=== PATIENT | female | born 1955 | race Caucasian/White ===

== ENCOUNTER 2018-10-20 20:13 | Inpatient (IN) | payer OTHER, SELFPAY ==
[2018-10-20] VITALS (13 sets, daily range): BP systolic 155–177; BP diastolic 80–88; PULSE 86–96; RESP 18; TEMP 36.8–37.6; O2SAT 98–100
--- NOTE | 2018-10-20 20:47 | ED.GENADUL_ITS ---
Discharge Plan Disposition Patient Disposition: [facility] INPATIENT Condition: Stable Discharge Details Chief Complaint: Abd Prob Clinical Impression: SBO (small bowel obstruction) Primary Care Provider: None,None ED Provider: Adrian Enriquez Home Meds and New Rx's Prescriptions: No Action raloxifene 60 mg Tablet 60 mg PO DAILY RF: 0 zolpidem [Ambien CR] 12.5 mg Tablet,Ext Release Multiphase 12.5 mg PO QHS PRNRF: 0 Medical Decision Making 63 yo female with hx of hysterectomy who comes in with chief complaint of abdominal pain and n/v since 2pm today. Denies fevers, chills, chest pain, sob. Dnies having pain eralier in the day and last BM yesterday. She appears in pain on exam with mildly distended abdomen and pain throughhout in every quadrant without guarding. Concern for sbo among other pathology, will obtain lab work and imaging to further evaluate. pt remains stable, labs unremarkable. Ct shows at least partial bowel o bstruction. Spoke with Dr. Dalton who accepts admission and requests NG tube which patient agrees with Differential Diagnosis sbo, colitis, perforation Imaging Data Radiologic Study: Attestation: I personally reviewed and interpreted this imaging study as follows: Imaging: CT Scan Radiologist's impression: IMPRESSION: Abnormally dilated loops of small bowel in the pelvis, at least partial small bowel obstruction, closed loop obstruction cannot be ruled out. Status post hysterectomy. No evidence for bowel perforation at this time. Lab Data Lab results reviewed: Yes I reviewed the patient's lab results. HPI General Mode of arrival: ambulatory . Date/Time Provider Initiated Documentation: 10/20/18 20:14 . Limitations to Documentation: no limitations . Information obtained by: patient . History of Present Illness 63 year old F presents to the emergency department with the chief complaint of abdominal pain, described as moderate, Quality is described as aching, and is localized to the abdomen. Patient reports no radiation. Patient started experiencing this hour(s) (6) and it has been constant. No relieving factors improve symptom(s), No exacerbating factors reported . Patient notes nausea/vomiting. Patient did receive the following treatments prior to arrival, none Related Data Home Medications Medication Instructions Recorded Confirmed raloxifene 60 mg PO DAILY 10/20/18 10/20/18 zolpidem [Ambien CR] 12.5 mg PO QHS PRN 10/20/18 10/20/18 Allergies Allergy/AdvReac Type Severity Reaction Status Date / Time No Known Allergies Allergy Unverified 10/20/18 20:23 General Stated Complaint: Abd Prob OLGA: 3 Review of Systems Review of Systems All systems reviewed & are unremarkable except as noted in HPI and below Constitutional Denies chills, Denies fever(s) and Denies weakness Cardiovascular Denies chest pain and Denies dyspnea Respiratory Denies cough and Denies dyspnea Genitourinary Denies dysuria Integumentary/Breasts Denies rash Neurologic Denies weakness PFSH Social History Smoking/Tobacco Use Status: Never Alcohol Intake: current Alcohol Intake frequency: a few times a month Drug use: Never Substance use type: does not use Do you feel safe at home: Yes Do you feel safe in your relationship?: Yes Exam Const General: no acute distress Orientation: alert HENMT Head: normal to inspection Ears: external ears normal General nose exam: external nose normal Mouth: moist mucous membranes Eyes General: appearance normal, both eyes and all related structures Neck Neck: normal visual inspection Resp Effort & Inspection: normal respiratory effort and able to speak in complete sentences Cardio Rate: regular rate GI Palpation: not firm Skin General skin exam: no rashes or lesions noted Neuro General: alert and oriented x3 Extrem General: normal to inspection Psych Mental Status: mental status grossly normal Course Vital Signs Temperature 36.8 C 10/20/18 20:20 Pulse 96 H 10/20/18 20:20 Blood Pressure 160/80 H 10/20/18 20:20 Pulse Oximetry 100 10/20/18 20:20 Temperature 36.8 C 10/20/18 20:20 Temperature Source Tympanic 10/20/18 20:20 Pulse 96 H 10/20/18 20:20 Respiratory Effort Non-Labored 10/20/18 20:25 Blood Pressure 160/80 H 10/20/18 20:20 Pulse Oximetry 100 10/20/18 20:20 Pain Level 3 10/20/18 20:20 Comment 10/20/18 20:20
[2018-10-20] MEDS: Normal Saline 1,000 ML 1000 ML IV (20:54)
[2018-10-20] MEDS: Ketorolac 15 MG/ML VIAL IVP (20:54)
[2018-10-20 20:58] LABS: Abs Immature Grans 0.02 k/cumm (0.0-0.09); Absolute Basophil Count 0.01 k/cumm (0.0-0.2); Absolute Lymphocyte Count 0.96 k/cumm (1.2-3.4); Absolute Monocyte Count 0.27 k/cumm (0.11-0.7); Basophils % 0.1; HCT 42.6 % (36.0-46.0); HGB 14.7 g/dL (12.0-15.5); Immature Grans % 0.2; Lymphocytes % 8.2; Mean Corp. HGB Concentration 34.5 g/dL (32.0-36.0); Mean Corpuscular Hemoglobin 31.7 pg (27.0-33.0); Mean Platelet Volume 10.2 fL (8.0-11.0); Monocytes % 2.3; Neutrophils % 89.2; Platelet Count 208 x1000/uL (130-400); RBC 4.63 m/cumm (4.00-5.20); RBC Distribution Width 12.1 % (11.7-14.6); White Blood Cell Count 11.73 k/cumm (4.4-10.8)
[2018-10-20 20:59] LABS: Absolute Neutrophil Count 10.46 k/cumm (1.2-6.7)
[2018-10-20] MEDS: Omnipaque 350 MG/ML 100 ML BTL IJ (21:02)
--- NOTE | 2018-10-20 21:08 | DI.CT_ITS ---
SYMPTOM/DIAGNOSIS: ABDOMINAL PAIN, VOMITING CT ABDOMEN AND PELVIS: There are no prior comparison exams. Images were performed from the lung bases through the ischial tuberosities after IV and without oral contrast. The heart size is normal. There is a small hiatal hernia. The lung bases are clear. The liver is mildly enlarged and shows mild fatty infiltration. No focal liver lesions or biliary dilatation is seen. The gallbladder is unremarkable. The spleen, pancreas, adrenals and kidneys appear normal. There is dilatation of loops of small bowel seen in the mid and lower abdomen. There are decompressed loops seen distally, There is a transition point which is near the midline at the level of the iliac crest. The stomach is not significantly distended. There is no free air or free fluid. No pneumatosis is seen. The patient is status post hysterectomy. The bladder is unremarkable. There has been prior anterior abdominal wall hernia repair. There is some thinning of the abdominal wall musculature but no evidence of a recurrent hernia. The aorta is normal in diameter. There are no significant bony abnormalities. IMPRESSION: Findings consistent with a small bowel obstruction. A transition point is seen in the mid abdomen.
[2018-10-20 21:12] LABS: ALT 28 U/L (14-59); AST 16 U/L (15-37); Albumin 4.2 g/dL (3.4-5.0); Alkaline Phosphatase 82 U/L (46-116); Anion Gap 15.9 mmol/L (3-11); BUN 13 mg/dL (7-18); Bilirubin, Total 0.5 mg/dL (0.2-1.0); CO2 24.1 mmol/L (21.0-32.0); CREATININE 0.96 mg/dL (0.55-1.02); Calcium 9.9 mg/dL (8.5-10.1); Chloride 102 mmol/L (98-107); Estimated GFR 58.51 (mL/min/1.73m2); Glucose 170 mg/dL (70-100); Lipase 136 U/L (73-393); Magnesium 1.7 mg/dL (1.8-2.4); Potassium 3.4 mmol/L (3.5-5.1); Sodium 142 mmol/L (136-145); Total Protein 7.6 g/dL (6.4-8.2)
--- NOTE | 2018-10-20 21:15 | DI.VRAD_ITS ---
EXAM: CT Abdomen and Pelvis With Contrast EXAM DATE/TIME: 10/20/2018 8:33 PM CLINICAL HISTORY: 63 years old, female; Abdominal pain; Generalized; Prior surgery; Surgery date: 6+ months; Surgery type: Oophorectomy/hysterectomy; Patient HX: HX breast cancer 1997; Additional info: Pain, nausea, vomiting, chills, shakes x6+/- hours TECHNIQUE: Imaging protocol: Computed tomography of the abdomen and pelvis with intravenous contrast. Radiation optimization: All CT scans at this facility use at least one of these dose optimization techniques: automated exposure control; mA and/or kV adjustment per patient size (includes targeted exams where dose is matched to clinical indication); or iterative reconstruction. Contrast material: [id number]; Contrast volume: 100 ml; Contrast route: IV RAC 18G; COMPARISON: No relevant prior studies available. FINDINGS: Liver: Enlarged liver, 18.5 cm in craniocaudal dimensions. Gallbladder and bile ducts: No calcified stones. No ductal dilation. Pancreas: Unremarkable. No ductal dilation. Spleen: Unremarkable. No splenomegaly. Adrenals: Unremarkable. No mass. Kidneys and ureters: Unremarkable. No hydronephrosis. Stomach and bowel: Dilated loops of small bowel. Transition point is not clearly identified. Likely at least partial mechanical small bowel obstruction. Small hiatal hernia containing proximal stomach. Appendix: No evidence of appendicitis. Intraperitoneal space: No free air. No significant fluid collection. Vasculature: No abdominal aortic aneurysm. Lymph nodes: No enlarged lymph nodes. Bladder: Unremarkable as visualized. Reproductive: Status post hysterectomy. Bones/joints: No acute fracture. No dislocation. Soft tissues: Postsurgical changes within right anterior abdominal wall, likely status post breast reconstruction.. IMPRESSION: Abnormally dilated loops of small bowel in the pelvis, at least partial small bowel obstruction, closed loop obstruction cannot be ruled out. Status post hysterectomy. No evidence for bowel perforation at this time. Dictated and Authenticated by: Carlos Marshall MD. Ordering:MEREDITH Campbell MD
[2018-10-20] MEDS: Ondansetron 4 MG/2 ML VIAL IVP (21:20)
[2018-10-20 21:21] LABS: PTT Activated 19.2 sec (21.0-31.4); Prothrombin Time 9.5 sec (9.3-11.0)
[2018-10-20 21:30] LABS: Bilirubin Negative (Negative); Blood Trace-intact (Negative); Clarity Clear (Clear); Glucose Negative (Negative); Ketones 40 mg/dL (Negative); Leukocyte Esterase Negative (Negative); Nitrite Negative (Negative); Urobilinogen 0.2 EU/dL (Up TO 0.2)
--- NOTE | 2018-10-20 21:36 | HPE_ITS ---
Date of service: 10/21/18 Time of Service: 21:36 Assessment and Plan (1) SBO (small bowel obstruction): Current visit: Yes Status: Acute appears to be resolving w/ gastric decompression/fluids/pain control. -pt is going to be in [place] for a prolonged stay and is concerned about developing recurrent SBO. This is her first SBO since adhesion lysis about 20 yrs ago. Will see how she progresses in the next few days. will have her f/u in clinic to d/w risk vs benefit of elective laparascope and lysis of adhesions. (2) Lower abdominal adhesions: Current visit: Yes Status: Acute History of Present Illness Narrative: 63 y/o female presented to ED w/ abdom pain, N/V, chills & sweats. She had a vaginal MERLINE when she was 27. She started having some abdom pain in 39's and had a laprascope- and had adhesions and a lysis done. Has had no problems since that time. She denies any unusual activites. Bowels are nl regular. She doesn't think she was dehydrated. No bad food. no injury or trauma. No recent illness or travel. No one else at home is ill. She is planning a 10m stay in [place] starting in November. She has not had any abdominal problems/pain/SBO since the laprascopy. today: Pt is doing well. no headaches. No CP or SOB. no productive cough. no dysuria. no leg pain or swelling. + flatus. no thrush CT: Stomach and bowel: Dilated loops of small bowel. Transition point is not clearly identified. Likely at least partial mechanical small bowel obstruction. Small hiatal hernia containing proximal stomach. Appendix: No evidence of appendicitis. Intraperitoneal space: No free air. No significant fluid collection. Vasculature: No abdominal aortic aneurysm. Lymph nodes: No enlarged lymph nodes. Bladder: Unremarkable as visualized. Reproductive: Status post hysterectomy. Bones/joints: No acute fracture. No dislocation. Soft tissues: Postsurgical changes within right anterior abdominal wall, likely status post breast reconstruction.. IMPRESSION: Abnormally dilated loops of small bowel in the pelvis, at least partial small bowel obstruction, closed loop obstruction cannot be ruled out. Status post hysterectomy. No evidence for bowel perforation at this time. Dictated and Authenticated by: Carlos Marshall MD. Review of Systems Review of Systems All systems reviewed & are unremarkable except as noted in HPI and below Constitutional Reports as per HPI, Reports system reviewed and no additional complaints, except as docu, Denies anorexia, Denies chills, Denies difficulty sleeping, Denies fatigue, Denies headache(s), Denies lethargy, Denies malaise, Denies poor appetite, Denies weakness, Denies weight gain and Denies weight loss Eyes Reports as per HPI, Reports system reviewed and no additional complaints, except as docu and Denies change in vision ENT Reports system reviewed and no additional complaints, except as docu, Reports as per HPI, Denies change in voice, Denies dental pain, Denies dysphagia, Denies dizziness, Denies facial pain, Denies headache(s) and Denies odynophagia Cardiovascular Reports as per HPI, Reports system reviewed and no additional complaints, except as docu, Denies chest pain, Denies chest pain with activity, Denies syncope, Denies leg edema and Denies dyspnea Respiratory Reports as per HPI, Reports system reviewed and no additional complaints, except as docu, Denies chest congestion, Denies cough, Denies pain with cough and Denies dyspnea Gastrointestinal Reports as per HPI, Reports system reviewed and no additional complaints, except as docu, Denies abdominal pain, Denies bloating, Denies change in bowel habits, Denies change in stool character, Denies constipation, Denies cramping, Denies dysphagia, Denies early satiety, Denies heartburn, Denies diarrhea, Denies nausea, Denies odynophagia and Denies vomiting Comments: yest pt had n/v, abdom pain, chills & sweats. nl bowels are very regular. no wt lose. no changes in bowels or blood in stools. also very distended and painful yest. this has resolved. She is passing gas this am. no pain. Musculoskeletal Reports system reviewed and no additional complaints, except as docu, Reports as per HPI, Denies abnormal gait, Denies arthralgias and Denies muscle weakness Integumentary/Breasts Reports system reviewed and no additional complaints, except as docu, Reports as per HPI, Denies changing lesions, Denies new lesions and Denies jaundice Neurologic Reports system reviewed and no additional complaints, except as docu, Reports as per HPI, Denies abnormal speech, Denies abnormal gait, Denies dizziness, Denies syncope, Denies headache(s), Denies memory loss and Denies weakness Psychiatric Reports system reviewed and no additional complaints, except as docu, Reports as per HPI, Denies change in appetite and Denies memory loss Endocrine Denies fatigue, Denies polydipsia and Denies polyuria Hematologic/Lymphatic Reports system reviewed and no additional complaints, except as docu, Denies easy bleeding and Denies easy bruising Allergic/Immunologic Denies system reviewed and no additional complaints, except as docu, Reports as per HPI and Denies urticaria PFSH Medical History (Updated 10/21/18 @ 11:48 by Simona Dalton DO) Breast cancer (Chronic) Lower abdominal adhesions (Acute) SBO (small bowel obstruction) (Acute) Surgical History (Updated 10/21/18 @ 11:48 by Simona Dalton DO) History of salpingoophorectomy (Acute) Hx of mastectomy (Chronic) S/P MERLINE-BSO (Acute) S/P TRAM (transverse rectus abdominis muscle) flap breast reconstruction (Acute) Social History Smoking/Tobacco Use Status: Never Alcohol Intake: current Alcohol Intake frequency: a few times a month Drug use: Never Substance use type: does not use Do you feel safe at home: Yes Do you feel safe in your relationship?: Yes Female Reproductive History Menstrual Menopause type: surgical Meds Home Medications Medication Instructions Recorded Confirmed Type raloxifene 60 mg PO DAILY 10/20/18 10/20/18 History zolpidem [Ambien CR] 12.5 mg PO QHS PRN 10/20/18 10/20/18 History Allergies Allergy/AdvReac Type Severity Reaction Status Date / Time No Known Allergies Allergy Unverified 10/20/18 20:23 Exam Const General: cooperative, healthy appearing, comfortable, no acute distress, well developed and well groomed Nutritional Appearance: average body habitus and well nourished Orientation: alert, awake and oriented x3 HENMT Head: normal to inspection, normocephalic and atraumatic Ears: hearing grossly normal bilaterally and external ears normal General nose exam: external nose normal Face and sinus: normal facial exam and sinuses nontender Mouth: oral mucosae normal, lip normal, tongue normal and moist mucous membranes Teeth and gingiva: dentition normal Eyes General: appearance normal, both eyes and all related structures Conjunctivae: conjunctivae normal Sclera: sclerae normal Pupils: PERRL Neck Neck: normal visual inspection and full ROM Chest Chest: normal inspection of the chest Resp Effort & Inspection: normal respiratory effort, able to speak in complete sentences, no cough, no nasal flaring, not tachypneic and no use of accessory muscles Auscultation: clear to auscultation bilaterally, no rales, no rhonchi and no wheezes Cardio Jugular venous pressure: no JVD Rate: regular rate Rhythm: regular rhythm GI Inspection: normal to inspection, no edema and non-distended Palpation: soft, no masses, nontender and No ascites Auscultation: normal bowel sounds Other: soft and no pain today. good BS. post sx changes noted Skin General skin exam: no rashes or lesions noted Trauma: no lacerations or abrasions Other: tattoo over sx scar on lower abdom Neuro General: alert, oriented x3, oriented, gait normal, moves all extremities, no focal motor deficits and CN's II-XI intact bilaterally Cognition: normal cognition Speech: speech normal Gait: normal gait Motor: muscle tone normal throughout Extrem General: normal to inspection, full ROM and no clubbing, cyanosis or edema Psych Appearance: grossly normal and well kempt Mental Status: mental status grossly normal Speech and Movement: speech and movement normal Affect: normal affect Results Labs : 10/21/18 07:11 10/21/18 07:11 Laboratory Results - last 24 hr 10/20/18 10/20/18 10/20/18 20:42 20:42 20:42 WBC 11.73 H RBC 4.63 Hgb 14.7 Hct 42.6 MCV 92.0 MCH 31.7 MCHC 34.5 RDW 12.1 Plt Count 208 MPV 10.2 Immature Gran % 0.2 Neutrophils % 89.2 Lymphocytes % 8.2 Monocytes % 2.3 Eosinophils % 0.0 Basophils % 0.1 Absolute Neutrophils 10.46 H Absolute Lymphocytes 0.96 L Absolute Monocytes 0.27 Absolute Eosinophils 0.00 Absolute Basophils 0.01 PT 9.5 INR 1.0 APTT 19.2 L Sodium 142 Potassium 3.4 L Chloride 102 Carbon Dioxide 24.1 Anion Gap 15.9 H BUN 13 Creatinine 0.96 Estimated GFR/1.73 m2 58.51 Glucose 170 H Calcium 9.9 Magnesium 1.7 L Total Bilirubin 0.5 AST 16 ALT 28 Alkaline Phosphatase 82 Total Protein 7.6 Albumin 4.2 Lipase 136 Urine Color Urine Clarity Urine pH Ur Specific Melrose Urine Protein Urine Ketones Urine Blood Urine Nitrite Urine Bilirubin Urine Urobilinogen Ur Leukocyte Esterase Urine Glucose 10/20/18 21:20 WBC RBC Hgb Hct MCV MCH MCHC RDW Plt Count MPV Immature Gran % Neutrophils % Lymphocytes % Monocytes % Eosinophils % Basophils % Absolute Neutrophils Absolute Lymphocytes Absolute Monocytes Absolute Eosinophils Absolute Basophils PT INR APTT Sodium Potassium Chloride Carbon Dioxide Anion Gap BUN Creatinine Estimated GFR/1.73 m2 Glucose Calcium Magnesium Total Bilirubin AST ALT Alkaline Phosphatase Total Protein Albumin Lipase Urine Color Yellow Urine Clarity Clear Urine pH 7.0 Ur Specific Melrose 1.010 Urine Protein Negative Urine Ketones 40 H Urine Blood Trace-intact H Urine Nitrite Negative Urine Bilirubin Negative Urine Urobilinogen 0.2 Ur Leukocyte Esterase Negative Urine Glucose Negative Last Vital Signs Temp 36.8 C 10/20/18 20:20 Pulse 96 H 10/20/18 20:20 BP 160/80 H 10/20/18 20:20 Pulse Ox 100 10/20/18 20:20
[2018-10-20] MEDS: diazePAM 10 MG/2 ML SYR 5 MG IVP (21:41)
[2018-10-20 21:46] LABS: Bacteria Negative HPF (Negative); C & S Indicated? No; Casts Negative LPF (Negative); Crystals Negative HPF (Negative); Epithelial Cells Negative HPF (Negative); Mucus Negative (Negative); WBC Negative HPF (0-5)
[2018-10-21] MEDS: FAMOTIDINE 20 MG/50 ML BAG 200 MG IVPB ×3 (01:03→20:11)
[2018-10-21] MEDS: Lactated Ringers 1,000 ML 150 ML IV ×3 (01:03→19:22)
[2018-10-21] MEDS: MAGNESIUM SULFATE 1 GM/100 ML BAG IVPB (01:04)
[2018-10-21 04:13] VITALS: TEMP 37.2
[2018-10-21 07:48] LABS: Platelet Count 194 x1000/uL (130-400)
[2018-10-21 07:56] LABS: Anion Gap 8.9 mmol/L (3-11); BUN 10 mg/dL (7-18); CO2 27.1 mmol/L (21.0-32.0); CREATININE 0.67 mg/dL (0.55-1.02); Calcium 8.6 mg/dL (8.5-10.1); Chloride 107 mmol/L (98-107); Glucose 101 mg/dL (70-100); Magnesium 2.2 mg/dL (1.8-2.4); Potassium 3.4 mmol/L (3.5-5.1); Sodium 143 mmol/L (136-145)
--- NOTE | 2018-10-21 08:00 | DI.RAD_ITS ---
SYMPTOMS/DIAGNOSIS: SMALL BOWEL OBSTRUCTION ON CT OF 10/20 FLAT AND UPRIGHT VIEWS OF THE ABDOMEN: A nasogastric tube is seen projecting in the stomach. No free air is identified. There are surgical clips along the left lower chest. No bowel dilatation or air-fluid levels are seen. IMPRESSION: No evidence of significant bowel dilatation. Satisfactory placement of nasogastric tube.
--- NOTE | 2018-10-21 09:14 | DI.VRAD_ITS ---
EXAM: XR Abdomen, 2 Views EXAM DATE/TIME: 10/21/2018 12:01 AM CLINICAL HISTORY: 63 years old, female; Other: Sbo on CT 10/20 TECHNIQUE: Imaging protocol: Frontal view of the abdomen/pelvis with upright view of the abdomen. COMPARISON: CT ABDOMEN PELVIS W 10/20/2018 9:03 PM FINDINGS: Tubes, catheters and devices: An enteric feeding tube is present, with its tip located in the stomach in good position.. Gastrointestinal tract: Multiple air-filled loops of bowel. No nora dilatation. Intraperitoneal space: Surgical clips in the pelvis Bones/joints: Unremarkable for age. IMPRESSION: 1. An enteric feeding tube is present, with its tip located in the stomach in good position.. 2. Multiple air-filled loops of bowel. No nora dilatation. Dictated and Authenticated by: Corbin Acuña MD. Ordering:MAGALY Jarvis MD
[2018-10-21] MEDS: Enoxaparin 40 MG/0.4 ML SYR SC (09:55)
[2018-10-21 11:37] VITALS: BP 129/79; PULSE 83; RESP 17; TEMP 36.9; O2SAT 97
[2018-10-21] MEDS: POTASSIUM CHLORIDE 10 MEQ/100 ML BAG 100 MEQ IVPB ×2 (12:50→14:56)
[2018-10-21] MEDS: Magnesium Citrate 300 ML BTL PO (14:11)
[2018-10-21 15:55] VITALS: BP 127/82; PULSE 80; RESP 18; TEMP 37.4; O2SAT 96
[2018-10-21] MEDS: ACETAMINOPHEN 1,000 MG/100 ML BTL 400 MG IVPB (21:58)
[2018-10-21] MEDS: Zolpidem 6.25 MG TABCR 12.5 MG PO (21:58)
[2018-10-22] MEDS: Lactated Ringers 1,000 ML 150 ML IV ×2 (02:07→09:15)
[2018-10-22 03:45] VITALS: BP 125/73; PULSE 81; RESP 18; TEMP 37.2; O2SAT 97
[2018-10-22] MEDS: Ondansetron 4 MG/2 ML VIAL IVP ×2 (04:00→10:35)
[2018-10-22] MEDS: Normal Saline Flush 10 ML SYR IVP ×3 (04:00→18:00)
[2018-10-22 08:18] VITALS: BP 129/82; PULSE 80; RESP 20; TEMP 36.7; O2SAT 96
[2018-10-22] MEDS: FAMOTIDINE 20 MG/50 ML BAG 200 MG IVPB ×2 (08:40→19:45)
[2018-10-22] MEDS: Enoxaparin 40 MG/0.4 ML SYR SC (08:54)
--- NOTE | 2018-10-22 11:58 | PGE_ITS ---
Date of Service Date of service: 10/22/18 Time of Service: 12:00 Assessment and Plan (1) SBO (small bowel obstruction): Current visit: Yes Status: Acute resolved. pt had signif amount of fecal matter and did some Mg Citrate to alleviate this. No she is having voluminous diarrhea. Continue with supportive care for this. Don't want to do anti diarrheals as to cause rebound constipation and bring on the SBO again. -ADAT -supportive care -hopefully d/c home in am -f/u as outpt to d/w elective dg laprascopic lysis of adhesions. Do want to review CT w/ rads before making this decision. (2) Lower abdominal adhesions: Current visit: Yes Status: Acute Subjective Interval history since last seen: Pt is doing well. no headaches. No CP or SOB. no productive cough. no dysuria. no leg pain or swelling. She did the Mg Citrate last lopez, now she has profuse diarrhea. She has some nasuea and abdominal cramping- but this is prob from diarrhea. She is not on/nor has she been on abx. Has local irritation. Otherwise feels much better than when she came in. Would like to try solid foods Exam Const General: cooperative Orientation: alert, awake and oriented x3 HENMT Ears: hearing grossly normal bilaterally General nose exam: external nose normal Face and sinus: normal facial exam and face symmetric Mouth: oral mucosae normal and tongue normal Chest Other: s/p mastectomy and TRAM reconstruction Resp Effort & Inspection: normal respiratory effort and able to speak in complete sentences Auscultation: clear to auscultation bilaterally Cardio Rate: regular rate Rhythm: regular rhythm GI Inspection: non-distended Palpation: soft and no guarding Rectal Exam - female: tenderness and other (excoriation ) Other: good BS Skin General skin exam: no rashes or lesions noted Neuro General: alert, awake, oriented x3, oriented, gait normal and moves all extremities Cognition: normal cognition Speech: speech normal Objective Objective Clinical Data: Vital Signs Temperature 36.7 C 10/22/18 08:18 Temperature Source Tympanic 10/22/18 08:18 Pulse 80 10/22/18 08:18 Pulse Rhythm Regular 10/22/18 09:02 Respiratory Rate 20 10/22/18 08:18 Respiratory Effort Non-Labored 10/22/18 09:02 Respiratory Depth Normal 10/22/18 09:02 Respiratory Pattern Normal 10/22/18 09:02 Blood Pressure 129/82 10/22/18 08:18 Blood Pressure Mean 99 10/20/18 22:46 Pulse Oximetry 96 10/22/18 08:18 Oxygen Delivery Method Room Air 10/22/18 08:18 Oxygen Flow Rate 0 10/22/18 08:18 Pain Level 0 10/22/18 08:18 Comment 10/20/18 20:20 Intake & Output 10/21/18 10/21/18 10/22/18 11:59 23:59 11:59 Intake Total 1105 / 2695 1590 / 2695 4030 / 4030 Output Total 400 / 400 Balance 705 / 2295 1590 / 2295 4030 / 4030 Intake: IV 1105 / 2455 1350 / 2455 3070 / 3070 Oral 240 / 240 960 / 960 Output: Gastric Drainage 100 / 100 Right Nare 100 / 100 Urine 300 / 300 Other: Urine Color Yellow Urine Appearance Clear Urine Odor None Comment voids independently in toilet Pt voiding ad missy in toilet; mixed with mulitiple liquid stools. Voiding Methods Toilet Toilet Toilet Laboratory Results WBC 11.73 k/cumm (4.4-10.8) H 10/20/18 20:42 RBC 4.63 m/cumm (4.00-5.20) 10/20/18 20:42 Hgb 14.7 g/dL (12.0-15.5) 10/20/18 20:42 Hct 42.6 % (36.0-46.0) 10/20/18 20:42 MCV 92.0 fL (80-95) 10/20/18 20:42 MCH 31.7 pg (27.0-33.0) 10/20/18 20:42 MCHC 34.5 g/dL (32.0-36.0) 10/20/18 20:42 RDW 12.1 % (11.7-14.6) 10/20/18 20:42 Plt Count 194 x1000/uL (130-400) 10/21/18 07:11 MPV 10.2 fL (8.0-11.0) 10/20/18 20:42 Immature Gran % 0.2 10/20/18 20:42 89.2 10/20/18 20:42 8.2 10/20/18 20:42 2.3 10/20/18 20:42 0.0 10/20/18 20:42 0.1 10/20/18 20:42 Absolute Neutrophils 10.46 k/cumm (1.2-6.7) H 10/20/18 20:42 Absolute Lymphocytes 0.96 k/cumm (1.2-3.4) L 10/20/18 20:42 Absolute Monocytes 0.27 k/cumm (0.11-0.7) 10/20/18 20:42 Absolute Eosinophils 0.00 k/cumm (0.0-0.7) 10/20/18 20:42 Absolute Basophils 0.01 k/cumm (0.0-0.2) 10/20/18 20:42 PT 9.5 sec (9.3-11.0) 10/20/18 20:42 INR 1.0 (0.9-1.1) 10/20/18 20:42 APTT 19.2 sec (21.0-31.4) L 10/20/18 20:42 Sodium 143 mmol/L (136-145) 10/21/18 07:11 Potassium 3.4 mmol/L (3.5-5.1) L 10/21/18 07:11 Chloride 107 mmol/L (98-107) 10/21/18 07:11 Carbon Dioxide 27.1 mmol/L (21.0-32.0) 10/21/18 07:11 8.9 mmol/L (3-11) 10/21/18 07:11 BUN 10 mg/dL (7-18) 10/21/18 07:11 0.67 mg/dL (0.55-1.02) 10/21/18 07:11 >= 60.00 (mL/min/1.73m2) 10/21/18 07:11 Glucose 101 mg/dL (70-100) H D 10/21/18 07:11 Calcium 8.6 mg/dL (8.5-10.1) 10/21/18 07:11 Magnesium 2.2 mg/dL (1.8-2.4) 10/21/18 07:11 0.5 mg/dL (0.2-1.0) 10/20/18 20:42 AST 16 U/L (15-37) 10/20/18 20:42 ALT 28 U/L (14-59) 10/20/18 20:42 82 U/L (46-116) 10/20/18 20:42 7.6 g/dL (6.4-8.2) 10/20/18 20:42 4.2 g/dL (3.4-5.0) 10/20/18 20:42 136 U/L (73-393) 10/20/18 20:42 Yellow (Yellow) 10/20/18 21:20 Clear (Clear) 10/20/18 21:20 7.0 (5-8) 10/20/18 21:20 Ur Specific [place] 1.010 (1.005-1.025) 10/20/18 21:20 Negative mg/dL (Negative) 10/20/18 21:20 40 mg/dL (Negative) H 10/20/18 21:20 Trace-intact (Negative) H 10/20/18 21:20 Negative (Negative) 10/20/18 21:20 Negative (Negative) 10/20/18 21:20 0.2 EU/dL (Up TO 0.2) 10/20/18 21:20 Ur Leukocyte Esterase Negative (Negative) 10/20/18 21:20 3-5 (0-2) H 10/20/18 21:20 Negative HPF (0-5) 10/20/18 21:20 Ur Epithelial Cells Negative HPF (Negative) 10/20/18 21:20 Negative HPF (Negative) 10/20/18 21:20 Negative HPF (Negative) 10/20/18 21:20 Negative LPF (Negative) 10/20/18 21:20 Negative (Negative) 10/20/18 21:20 Ur Culture Indicated? No 10/20/18 21:20 Negative mg/dL (Negative) 10/20/18 21:20
[2018-10-22] MEDS: Hamamelis Leaf/Glycerin 100 EACH BOX PR (14:14)
[2018-10-22] MEDS: Cetirizine 10 MG TAB PO (14:50)
[2018-10-22 15:56] VITALS: BP 139/83; PULSE 72; RESP 18; TEMP 36.8; O2SAT 99
--- NOTE | 2018-10-22 18:26 | PDOC.CMIN ---
- If Service Date Differs Date of service: 10/22/18 Time of Service: 18:26 Care Management Initial Assess REASON FOR HOSPITALIZATION:: SBO PAST MEDICAL HISTORY/PAST SURGICAL HISTORY:: Breast cancer, bowel adhesions, small bowel obstruction. Surgical Hx: Salpingoophorectomy, mastectomy, total abdominal hyst, TRAM PREVIOUS FUNCTIONAL STATUS/SOCIAL/FAMILY SUPPORTS:: Rosalba lives in [place], [place] at [facility]. She is independent with ADL's and care including transportation. CURRENT FUNCTIONAL STATUS:: Rosalba reports she is improving she has been ambulating often in the halls. She anticipates she will be discharged on Tuesday. She is moving her bowels she reports the Mag Citrate made them a little loose and she is hoping they will slow down prior to leaving. She was able to tolerate some fruit today. ADVANCE DIRECTIVES:: none on file Has patient been provided with information about the portal?: Yes Did the patient sign up for the portal?: No CODE STATUS:: Full Code INSURANCE COVERAGE / FINANCIAL ISSUES:: [employer] CURRENT HOME/COMMUNITY SERVICES/EQUIPMENT:: None PRIMARY CARE PHYSICIAN:: Griffin Watson POTENTIAL DISCHARGE NEEDS:: Follow up with surgical provider as directed. PATIENT/FAMILY EDUCATION NEEDS:: Discharge education, limitations, follow-up plan of care. ANTICIPATED BARRIERS TO DISCHARGE:: No anticipated barriers. TRANSPORTATION:: Via private car with family or friends at time of discharge. PLAN:: Patient be discharged when medically ready per provider. She will follow-up with surgical provider as directed. No anticipated services at this time. CM to continue to provide support.
[2018-10-22] MEDS: Lactated Ringers 1,000 ML 100 ML IV (19:45)
[2018-10-22] MEDS: ACETAMINOPHEN 1,000 MG/100 ML BTL 400 MG IVPB (22:34)
[2018-10-22] MEDS: Zolpidem 6.25 MG TABCR 12.5 MG PO (22:35)
[2018-10-22 23:37] VITALS: BP 116/73; PULSE 78; RESP 18; TEMP 36.9; O2SAT 95
[2018-10-23] MEDS: Lactated Ringers 1,000 ML 100 ML IV (04:22)
[2018-10-23 07:23] VITALS: BP 148/94; PULSE 72; RESP 17; TEMP 36.4; O2SAT 96
[2018-10-23] MEDS: Cetirizine 10 MG TAB PO (08:23)
[2018-10-23] MEDS: Enoxaparin 40 MG/0.4 ML SYR SC (08:23)
[2018-10-23] MEDS: FAMOTIDINE 20 MG/50 ML BAG 200 MG IVPB (08:24)
[2018-10-23] MEDS: Ondansetron 4 MG/2 ML VIAL IVP (08:39)
[2018-10-23] MEDS: Normal Saline Flush 10 ML SYR IVP (08:39)
--- NOTE | 2018-10-23 10:22 | PDOC.CMDIS ---
LACE Index Scoring Tool - Questions: Length of Stay (in days): 3 Acuity (Admit via E.D.?): Yes Comorbidities: Any Tumor E.D. Visits: 1 - Answers: Total Score: 9 Risk of Readmission: Low Risk Care Management Discharge Reason for Hospitalization: SBO Discharge Plan: Rosalba will be discharged home when ready per MD. She will follow-up with surgical services and her plan of care prescribed. No additional services anticipated at this time. Patient/Family Education Needs: Review of discharge instructions, discuss Ask Me Three.
--- NOTE | 2018-10-23 12:37 | W.PM.DS.N ---
Date of service: 10/23/18 Time of Service: 12:37 DS: Diagnosis Discharge Diagnosis (1) SBO (small bowel obstruction): Status: Acute (2) Lower abdominal adhesions: Status: Acute Discharge Plan Disposition Patient Disposition: HOME Condition: Stable Discharge Details Chief Complaint: Abd Prob Clinical Impression: SBO (small bowel obstruction) Reason For Visit: PARTIAL SBO Admit Date/Time: 10/20/18 21:37 Admit Provider: Simona Dalton Attending Provider: Simona Dalton Primary Care Provider: Griffin Watson ED Provider: Adrian Enriquez Hospital Course Hospital Course: pt admitted w/ partially SBO that resolved w/ conservative management (NGT decompression, IV fluids, pain control). Pt had a vag hyst in her 20's. Did have laprascopic lysis of adhesions for abdom painin her 40's. Otherwise, this is her first SBO. She had a CE around age 49 that was nl for her. Home Meds and New Rx's Prescriptions: New cetirizine 10 mg Tablet 10 mg PO DAILY Qty: 30 RF: 13 Medi Pads Pads, Medicated 0 pad NH PRN PRNQty: 20 RF: 1 Continued raloxifene 60 mg Tablet 60 mg PO DAILY RF: 0 zolpidem [Ambien CR] 12.5 mg Tablet,Ext Release Multiphase 12.5 mg PO QHS PRNRF: 0 Discharge Instructions Instructions: Bowel Obstruction (DC) Additional Instructions: -OK to drive -yogurt daily -tucks pads OTC for local page irritation -Follow-up with Dr. Dalton or Tuesday of this week. Will have to call to schedule appt: [phone] -soft diet: No beef/pork raw vegetables x1 -week. Cooked vegetables are fine -no straining to move bowels if you do not move your bowels daily take a dose of OTC milk of magnesia -It is ok to shower. it is ok to: bathe, soaking, swimming or hot tubs You may find that your appetite is smaller. Eat 3-6 small meals throughout the day. It is important to drink lots of wate, 6-10 glasses a day. -avoid very strenuous activity for 1-2 days -We do want you up walking, at least 5-6 times per day. This is very important to prevent pneumonia and blood clots. You can climb stairs, take them slowly. -No lifting over 25 pounds for 1-2 days Stand Alone Forms: Nursing Discharge Form Referrals: Simona Dalton, [OSTEOPATHIC DOCTOR] - (Call the office Tuesday to schedule an appointment for either or Tuesday) Activity:: see above Equipment/Supplies:: No Equipment Needed Diet:: water 8-10 glasses per day Discharge Orders Discharge Orders: Discharge Order (Routine); Ordered 10/23/18 Ordered By: Simona Dalton Discharge Data Discharge Date/Time-TO BE ENTERED AT DEPARTURE: 10/23/18 13:58 Exam Narrative Exam Narrative: see progress note from 10/24 DS: Data Vitals/I&O Vitals and I&O: Vital Signs Temperature 36.4 C L 10/23/18 07:23 Temperature Source Tympanic 10/23/18 07:23 Pulse 72 10/23/18 07:23 Pulse Rhythm Regular 10/23/18 08:15 Respiratory Rate 17 10/23/18 07:23 Respiratory Effort Non-Labored 10/23/18 08:15 Respiratory Depth Normal 10/23/18 08:15 Respiratory Pattern Normal 10/23/18 08:15 Blood Pressure 148/94 H 10/23/18 07:23 Blood Pressure Mean 99 10/20/18 22:46 Pulse Oximetry 96 10/23/18 07:23 Oxygen Delivery Method Room Air 10/23/18 07:23 Oxygen Flow Rate 0 10/23/18 07:23 Pain Level 0 10/23/18 07:23 Comment 10/20/18 20:20 Intake & Output 10/22/18 10/23/18 10/23/18 23:59 11:59 23:59 Intake Total 2400 / 6630 1301.667 / 1301.667 Output Total 1800 / 1800 1500 / 1500 Balance 600 / 4830 -198.333 / -198.333 Intake: IV 960 / 4230 861.667 / 861.667 Oral 1440 / 2400 440 / 440 Output: Urine 1800 / 1800 1500 / 1500 Other: Urine Color Yellow Yellow Urine Appearance Clear Clear Urine Odor Normal None Comment Patient voids independently Stool Size Moderate Moderate Stool Characteristics Liquid Liquid Brown Brown Voiding Methods Toilet Toilet [facility] Medical History (Updated 10/21/18 @ 11:48 by Simona Dalton DO) Breast cancer (Chronic) Lower abdominal adhesions (Acute) SBO (small bowel obstruction) (Acute) Surgical History (Updated 10/21/18 @ 11:48 by Simona Dalton DO) History of salpingoophorectomy (Acute) Hx of mastectomy (Chronic) S/P MERLINE-BSO (Acute) S/P TRAM (transverse rectus abdominis muscle) flap breast reconstruction (Acute) Social History Smoking/Tobacco Use Status: Never Alcohol Intake: current Alcohol Intake frequency: a few times a month Drug use: Never Substance use type: does not use Do you feel safe at home: Yes Do you feel safe in your relationship?: Yes Female Reproductive History Menstrual Menopause type: surgical
--- NOTE | 2018-10-23 12:49 | W.PM.PROGNOT ---
Date of Service Date of service: 10/23/18 Time of Service: 12:49 Assessment and Plan (1) SBO (small bowel obstruction): Current visit: No Status: Acute resolved. plan dc home today f/u in clinic. will review ct when rads available on tuesday (2) Lower abdominal adhesions: Current visit: No Status: Acute Subjective Interval history since last seen: Pt had formed stool this am. Still some mild abdominal crampiness. Tolerateing po's. Pt is doing well. no headaches. No CP or SOB. no productive cough. no dysuria. no leg pain or swelling. no thrush good BS and no signif abdominal pain. Exam Const General: cooperative, healthy appearing, comfortable, no acute distress, well developed and well groomed Nutritional Appearance: average body habitus and well nourished Orientation: alert, awake and oriented x3 HENMT Head: normal to inspection, normocephalic and atraumatic Ears: hearing grossly normal bilaterally and external ears normal General nose exam: external nose normal Face and sinus: normal facial exam and sinuses nontender Mouth: oral mucosae normal, lip normal, tongue normal and moist mucous membranes Teeth and gingiva: dentition normal Eyes General: appearance normal, both eyes and all related structures Conjunctivae: conjunctivae normal Sclera: sclerae normal Pupils: PERRL Neck Neck: normal visual inspection and full ROM Chest Chest: normal inspection of the chest Other: s/p mastectomy and TRAM. post sx changes noted. no hernias. Resp Effort & Inspection: normal respiratory effort, able to speak in complete sentences, no cough, no nasal flaring, not tachypneic and no use of accessory muscles Auscultation: clear to auscultation bilaterally, no rales, no rhonchi and no wheezes Cardio Jugular venous pressure: no JVD Rate: regular rate Rhythm: regular rhythm GI Inspection: normal to inspection, no edema and non-distended Palpation: soft, no masses, nontender and No ascites Auscultation: normal bowel sounds Other: good BS. no hernias. post SX changes noted. Skin General skin exam: no rashes or lesions noted Trauma: no lacerations or abrasions Neuro General: alert, oriented x3, oriented, gait normal, moves all extremities, no focal motor deficits and CN's II-XI intact bilaterally Cognition: normal cognition Speech: speech normal Gait: normal gait Motor: muscle tone normal throughout Extrem General: normal to inspection, full ROM and no clubbing, cyanosis or edema Psych Appearance: grossly normal and well kempt Mental Status: mental status grossly normal Speech and Movement: speech and movement normal Affect: normal affect Objective Objective Clinical Data: Vital Signs Temperature 36.4 C L 10/23/18 07:23 Temperature Source Tympanic 10/23/18 07:23 Pulse 72 10/23/18 07:23 Pulse Rhythm Regular 10/23/18 08:15 Respiratory Rate 17 10/23/18 07:23 Respiratory Effort Non-Labored 10/23/18 08:15 Respiratory Depth Normal 10/23/18 08:15 Respiratory Pattern Normal 10/23/18 08:15 Blood Pressure 148/94 H 10/23/18 07:23 Blood Pressure Mean 99 10/20/18 22:46 Pulse Oximetry 96 10/23/18 07:23 Oxygen Delivery Method Room Air 10/23/18 07:23 Oxygen Flow Rate 0 10/23/18 07:23 Pain Level 0 10/23/18 07:23 Comment 10/20/18 20:20 Intake & Output 10/22/18 10/23/18 10/23/18 23:59 11:59 23:59 Intake Total 2400 / 6630 1301.667 / 1301.667 Output Total 1800 / 1800 1500 / 1500 Balance 600 / 4830 -198.333 / -198.333 Intake: IV 960 / 4230 861.667 / 861.667 Oral 1440 / 2400 440 / 440 Output: Urine 1800 / 1800 1500 / 1500 Other: Urine Color Yellow Yellow Urine Appearance Clear Clear Urine Odor Normal None Comment Patient voids independently Stool Size Moderate Moderate Stool Characteristics Liquid Liquid Brown Brown Voiding Methods Toilet Toilet Laboratory Results WBC 11.73 k/cumm (4.4-10.8) H 10/20/18 20:42 RBC 4.63 m/cumm (4.00-5.20) 10/20/18 20:42 Hgb 14.7 g/dL (12.0-15.5) 10/20/18 20:42 Hct 42.6 % (36.0-46.0) 10/20/18 20:42 MCV 92.0 fL (80-95) 10/20/18 20:42 MCH 31.7 pg (27.0-33.0) 10/20/18 20:42 MCHC 34.5 g/dL (32.0-36.0) 10/20/18 20:42 RDW 12.1 % (11.7-14.6) 10/20/18 20:42 Plt Count 194 x1000/uL (130-400) 10/21/18 07:11 MPV 10.2 fL (8.0-11.0) 10/20/18 20:42 Immature Gran % 0.2 10/20/18 20:42 89.2 10/20/18 20:42 8.2 10/20/18 20:42 2.3 10/20/18 20:42 0.0 10/20/18 20:42 0.1 10/20/18 20:42 Absolute Neutrophils 10.46 k/cumm (1.2-6.7) H 10/20/18 20:42 Absolute Lymphocytes 0.96 k/cumm (1.2-3.4) L 10/20/18 20:42 Absolute Monocytes 0.27 k/cumm (0.11-0.7) 10/20/18 20:42 Absolute Eosinophils 0.00 k/cumm (0.0-0.7) 10/20/18 20:42 Absolute Basophils 0.01 k/cumm (0.0-0.2) 10/20/18 20:42 PT 9.5 sec (9.3-11.0) 10/20/18 20:42 INR 1.0 (0.9-1.1) 10/20/18 20:42 APTT 19.2 sec (21.0-31.4) L 10/20/18 20:42 Sodium 143 mmol/L (136-145) 10/21/18 07:11 Potassium 3.4 mmol/L (3.5-5.1) L 10/21/18 07:11 Chloride 107 mmol/L (98-107) 10/21/18 07:11 Carbon Dioxide 27.1 mmol/L (21.0-32.0) 10/21/18 07:11 8.9 mmol/L (3-11) 10/21/18 07:11 BUN 10 mg/dL (7-18) 10/21/18 07:11 0.67 mg/dL (0.55-1.02) 10/21/18 07:11 >= 60.00 (mL/min/1.73m2) 10/21/18 07:11 Glucose 101 mg/dL (70-100) H D 10/21/18 07:11 Calcium 8.6 mg/dL (8.5-10.1) 10/21/18 07:11 Magnesium 2.2 mg/dL (1.8-2.4) 10/21/18 07:11 0.5 mg/dL (0.2-1.0) 10/20/18 20:42 AST 16 U/L (15-37) 10/20/18 20:42 ALT 28 U/L (14-59) 10/20/18 20:42 82 U/L (46-116) 10/20/18 20:42 7.6 g/dL (6.4-8.2) 10/20/18 20:42 4.2 g/dL (3.4-5.0) 10/20/18 20:42 136 U/L (73-393) 10/20/18 20:42 Yellow (Yellow) 10/20/18 21:20 Clear (Clear) 10/20/18 21:20 7.0 (5-8) 10/20/18 21:20 Ur Specific [place] 1.010 (1.005-1.025) 10/20/18 21:20 Negative mg/dL (Negative) 10/20/18 21:20 40 mg/dL (Negative) H 10/20/18 21:20 Trace-intact (Negative) H 10/20/18 21:20 Negative (Negative) 10/20/18 21:20 Negative (Negative) 10/20/18 21:20 0.2 EU/dL (Up TO 0.2) 10/20/18 21:20 Ur Leukocyte Esterase Negative (Negative) 10/20/18 21:20 3-5 (0-2) H 10/20/18 21:20 Negative HPF (0-5) 10/20/18 21:20 Ur Epithelial Cells Negative HPF (Negative) 10/20/18 21:20 Negative HPF (Negative) 10/20/18 21:20 Negative HPF (Negative) 10/20/18 21:20 Negative LPF (Negative) 10/20/18 21:20 Negative (Negative) 10/20/18 21:20 Ur Culture Indicated? No 10/20/18 21:20 Negative mg/dL (Negative) 10/20/18 21:20
== END 2018-10-23 13:58 | disposition home or self-care (01) | DRG 390 ==
LOC: ER 21:56 → MS 23:13
PROVIDERS: Admitting Provider Surgery; Emergency Provider Emergency Medicine; PCP Specialist/Technologist Athletic Trainer; Visit Provider Surgery
DX: K56.51 Intestinal adhesions [bands], with partial obstruction (principal); K44.9 Diaphragmatic hernia without obstruction or gangrene
CPT/HCPCS: 36415; 80048; 80053; 83690; 96361; 96374; 96375; 99222; 99232; 99238; 99285; J1650; 74019; 74177; 81003; 81015; 83735; 85025; 85049; 85610; 85730; 99284; J0131; J1885; J2405; J3360; J3475; J3480; J3490

== ENCOUNTER 2018-10-27 10:44 | Emergency (ER) | payer OTHER, SELFPAY ==
[2018-10-27 10:47] VITALS: BP 154/93; PULSE 68; RESP 16; TEMP 36.6; O2SAT 98
--- NOTE | 2018-10-27 10:59 | DI.CT_ITS ---
SYMPTOMS/DIAGNOSIS: EPIGASTRIC ABD PAIN, NAUSEA, H/O RECENT SBO ABDOMINAL AND PELVIC CT: CT examination of the abdomen and pelvis was performed with a bolus infusion of 100 cc's of Omnipaque 350 and ingestion of dilute barium. Images obtained through the lung bases are unremarkable. The liver and spleen are unremarkable in appearance. The gallbladder and bile ducts are CT normal. The pancreas appears normal. The abdominal aorta is of normal diameter and no major vascular abnormality is seen. No significant abdominal wall hernia seen. No abdominal or pelvic adenopathy. The adrenals and kidneys appear normal. No evidence of urinary tract obstruction or calcification. The appendix appears normal. Colonic diverticulosis noted without evidence of focal diverticulitis. The examination is compared to previous CT of 10/20/18 and previously noted small bowel obstruction appears to have resolved. Note is made however that there are abnormal loops of small bowel which persist in the left upper quadrant with significant bowel wall thickening, fold thickening, and dilatation without evidence of obstruction. No free intraperitoneal air noted. Small quantity of free intraperitoneal fluid seen particularly in the pelvis. CONCLUSION: 1. Interval resolution of small bowel obstruction from 10/20/18. 2. Persistent loops of abnormal small bowel in left upper quadrant consistent with enteritis of uncertain etiology.
--- NOTE | 2018-10-27 11:02 | W.ED.GENAD ---
Discharge Plan Disposition Patient Disposition: HOME Discharge Details Chief Complaint: Abd Prob Clinical Impression: Enteritis, Abdominal pain Primary Care Provider: Griffin Watson ED Provider: Francesco Escobar Home Meds and New Rx's Prescriptions: New dicyclomine 10 mg capsule 10 mg PO TID 7 Days Qty: 21 RF: 0 No Action raloxifene 60 mg Tablet 60 mg PO DAILY RF: 0 zolpidem [Ambien CR] 12.5 mg Tablet,Ext Release Multiphase 12.5 mg PO QHS PRNRF: 0 cetirizine 10 mg Tablet 10 mg PO DAILY Qty: 30 RF: 13 Medi Pads Pads, Medicated 0 pad VT PRN PRNQty: 20 RF: 1 Discharge Instructions Instructions: Abdominal Pain (ED) Additional Instructions: We have several tests that will be sent out to evaluate for other potential etiologies. It is very important to maintain hydration at home. If your pain worsens or you develop severe abdominal distention or constipation or vomiting he should return to the emergency department for repeat evaluation. Dr. Dalton is a very aware of your CT findings and will follow up with you in the office should your symptoms persist. Referrals: Simona Dalton DO [OSTEOPATHIC DOCTOR] - 1 week Discharge Data Discharge Date/Time-TO BE ENTERED AT DEPARTURE: 10/27/18 14:24 Medical Decision Making This is a nontoxic-appearing 63-year-old female presenting to the emergency department with concerns of SBO seen in the office by general surgery earlier today. Her abdomen is soft however tender diffusely. Vitals stable. Labs reassuring without white count or lactate. Her CT of her abdomen and pelvis today demonstrates local area of small bowel thickening without evidence of obstruction. Case discussed with Dr. Dalton from general surgery who also reviewed imaging. She has added several lab tests on and would like the patient started on Bentyl. If her symptoms persist she will follow-up with her in the office next week. Patient educated on supportive care and hydration techniques. If her symptoms of pain worsen or she develops vomiting and/or constipation she should return to the emergency department for repeat evaluation. HPI General Date/Time Provider Initiated Documentation: 10/27/18 10:44. HPI Narrative: Patient is a 63-year-old female with a recent history for small bowel obstruction medically managed here at [facility] roughly 1 week ago. Patient states that since her discharge from the hospital she is continued to have diffuse abdominal pain. She describes the pain is wavelike. She states the pain is nonradiating. She admits to nausea. No vomiting. She has had bowel movements but describes them as loose stool. She was seen earlier today by Dr. Bruce in clinic and sent to the emergency department for evaluation and repeat CAT scan. Related Data Home Medications Medication Instructions Recorded Confirmed raloxifene 60 mg PO DAILY 10/20/18 10/27/18 zolpidem [Ambien CR] 12.5 mg PO QHS PRN 10/20/18 10/27/18 cetirizine 10 mg PO DAILY #30 tab 10/23/18 10/27/18 witch jose juan-glycerin (hamamel) 0 pad VT PRN PRN #20 ea 10/23/18 10/27/18 [Medi Pads] dicyclomine 10 mg PO TID 7 Days #21 cap 10/27/18 Previous Rx's Medication Instructions Recorded cetirizine 10 mg PO DAILY #30 tab 10/23/18 witch jose juan-glycerin (hamamel) 0 pad VT PRN PRN #20 ea 10/23/18 [Medi Pads] dicyclomine 10 mg PO TID 7 Days #21 cap 10/27/18 Allergies Allergy/AdvReac Type Severity Reaction Status Date / Time No Known Allergies Allergy Verified 10/27/18 10:27 General Stated Complaint: Abd Prob OLGA: 3 Review of Systems Constitutional Denies chills, Denies fever(s), Denies lethargy, Denies malaise and Reports night sweats Cardiovascular Denies chest pain, Denies leg edema and Denies dyspnea Respiratory Denies cough and Denies dyspnea Gastrointestinal Reports abdominal pain, Reports bloating, Reports change in bowel habits, Denies change in stool character, Denies coffee ground emesis, Denies constipation, Reports cramping, Denies excessive flatus, Reports diarrhea, Reports loose stools, Reports nausea, Denies vomiting and Denies hematemesis Genitourinary Denies dysuria Musculoskeletal Denies back pain and Denies myalgias Hematologic/Lymphatic Denies easy bleeding and Denies easy bruising [facility] Medical History Breast cancer (Chronic) Lower abdominal adhesions (Acute) SBO (small bowel obstruction) (Acute) Surgical History History of salpingoophorectomy (Acute) Hx of mastectomy (Chronic) S/P MERLINE-BSO (Acute) S/P TRAM (transverse rectus abdominis muscle) flap breast reconstruction (Acute) Social History Smoking/Tobacco Use Status: Never Alcohol Intake: current Alcohol Intake frequency: a few times a month Drug use: Never Substance use type: does not use Do you feel safe at home: Yes Do you feel safe in your relationship?: Yes Female Reproductive History Menstrual Menopause type: surgical Exam Const General: cooperative, healthy appearing, comfortable and no acute distress HENMT Head: normal to inspection Neck Neck: normal visual inspection Chest Chest: normal inspection of the chest Resp Effort & Inspection: normal respiratory effort and able to speak in complete sentences Auscultation: clear to auscultation bilaterally Cardio Jugular venous pressure: no JVD Palpation: normal PMI Rate: regular rate Rhythm: regular rhythm Heart Sounds: S1 normal and S2 normal Pulses: normal peripheral pulses GI Inspection: normal to inspection and no abdominal wall ecchymosis Palpation: soft and tender in the epigastrum, in the LLQ and in the RLQ; with no rebound tenderness Auscultation: absent bowel sounds Skin General skin exam: no rashes or lesions noted Neuro Cognition: normal cognition Speech: speech normal Course Vital Signs Temperature 36.6 C 10/27/18 10:47 Pulse 68 10/27/18 10:47 Respiratory Rate 16 10/27/18 10:47 Blood Pressure 154/93 H 10/27/18 10:47 Pulse Oximetry 98 10/27/18 10:47 Temperature 36.6 C 10/27/18 10:47 Temperature Source Skin 10/27/18 10:47 Pulse 68 10/27/18 10:47 Respiratory Rate 16 10/27/18 10:47 Respiratory Effort Non-Labored 10/27/18 10:50 Blood Pressure 154/93 H 10/27/18 10:47 Blood Pressure Position Supine 10/27/18 10:47 Pulse Oximetry 98 10/27/18 10:47 Oxygen Delivery Method Room Air 10/27/18 10:47 Oxygen Flow Rate 0 10/27/18 10:47
[2018-10-27] MEDS: Breeza Beverage 473 ML BTL PO ×2 (11:32→11:34)
[2018-10-27] MEDS: Omnipaque 350 MG/ML 50 ML BTL PO (11:33)
[2018-10-27] MEDS: Ondansetron 4 MG/2 ML VIAL IVP (11:47)
[2018-10-27] MEDS: Lactated Ringers 1,000 ML 1000 ML IV (11:47)
[2018-10-27 12:06] LABS: Lactate 1.1 mmol/L (0.6-1.4)
[2018-10-27 12:08] LABS: Abs Immature Grans 0.01 k/cumm (0.0-0.09); Absolute Basophil Count 0.02 k/cumm (0.0-0.2); Absolute Eosinophil Count 0.13 k/cumm (0.0-0.7); Absolute Lymphocyte Count 1.58 k/cumm (1.2-3.4); Absolute Monocyte Count 0.43 k/cumm (0.11-0.7); Absolute Neutrophil Count 4.38 k/cumm (1.2-6.7); Basophils % 0.3; HCT 42.2 % (36.0-46.0); HGB 14.2 g/dL (12.0-15.5); Immature Grans % 0.2; Lymphocytes % 24.1; Mean Corp. HGB Concentration 33.6 g/dL (32.0-36.0); Mean Corpuscular Hemoglobin 31.5 pg (27.0-33.0); Mean Corpuscular Volume 93.6 fL (80-95); Mean Platelet Volume 9.6 fL (8.0-11.0); Monocytes % 6.6; Neutrophils % 66.8; Platelet Count 243 x1000/uL (130-400); RBC 4.51 m/cumm (4.00-5.20); RBC Distribution Width 12.4 % (11.7-14.6); White Blood Cell Count 6.55 k/cumm (4.4-10.8)
[2018-10-27] MEDS: Omnipaque 350 MG/ML 100 ML BTL IJ (12:21)
[2018-10-27 12:23] LABS: Bilirubin Negative (Negative); Blood Negative (Negative); Clarity Clear (Clear); Glucose Negative (Negative); Ketones Negative (Negative); Leukocyte Esterase Negative (Negative); Nitrite Negative (Negative); Urobilinogen 0.2 EU/dL (Up TO 0.2); pH 8.5 (5-8)
[2018-10-27 12:25] LABS: ALT 31 U/L (14-59); AST 13 U/L (15-37); Alkaline Phosphatase 71 U/L (46-116); Anion Gap 6.1 mmol/L (3-11); BUN 11 mg/dL (7-18); Bilirubin, Total 0.2 mg/dL (0.2-1.0); CO2 30.9 mmol/L (21.0-32.0); CREATININE 0.65 mg/dL (0.55-1.02); Calcium 8.9 mg/dL (8.5-10.1); Chloride 105 mmol/L (98-107); Glucose 98 mg/dL (70-100); Magnesium 1.9 mg/dL (1.8-2.4); Potassium 3.5 mmol/L (3.5-5.1); Sodium 142 mmol/L (136-145); Total Protein 6.8 g/dL (6.4-8.2); Troponin I < 0.05 ng/mL (0.00-0.06)
[2018-10-27 13:28] VITALS: BP 151/68; PULSE 94; TEMP 36.5
[2018-10-27 14:17] VITALS: BP 162/73; TEMP 36.5; O2SAT 96
--- NOTE | 2018-10-27 14:25 | NUR.NOTE ---
Nursing Note: pt alert/oriented/ambulatory. discharged to home, instructions reviewed, emphasis on follow up, understanding verbalized. Pt unable to give stool sample, pt sent up with collection kit.
[2018-10-27 14:44] LABS: ESR 9 mm/hr (0-30)
[2018-10-27 14:46] LABS: C-Reactive Protein 0.23 mg/dL (0.0-0.3)
[2018-10-30 13:05] LABS: Ascaris IgE <0.35 kU/L
[2018-10-30 14:09] LABS: ANA Interpretation Negative (NEGAT)
[2018-10-31 00:06] LABS: Saccharomyces cerevisiae IgA <10.0 U; Saccharomyces cervisiae IgG <10.0 U
== END 2018-10-27 14:24 | disposition home or self-care (01) ==
PROVIDERS: Surgery; Emergency Provider Physician Assistant; PCP Specialist/Technologist Athletic Trainer
DX: K52.9 Noninfective gastroenteritis and colitis, unspecified (principal); R11.0 Nausea
CPT/HCPCS: 36415; 80053; 85652; 86003; 96361; 96374; 99285; 74177; 81003; 83605; 83735; 84484; 85025; 86038; 86140; 86255; 86671; 99284; J2405; J3490; Q9967

== ENCOUNTER 2018-10-27 17:04 | Outpatient (REF) | payer OTHER, SELFPAY ==
[2018-10-30 17:11] LABS: Campylobacter PCR SEE COMMENTS; Salmonella PCR SEE COMMENTS; Shiga Toxin PCR SEE COMMENTS; Shigella/Enteroinvasive Ecoli SEE COMMENTS
== END 2018-10-27 17:24 ==
LOC: LBN 17:04
PROVIDERS: PCP Specialist/Technologist Athletic Trainer; Visit Provider Surgery
DX: R19.7 Diarrhea, unspecified (principal); R10.9 Unspecified abdominal pain
CPT/HCPCS: 87505; 83630

== ENCOUNTER 2019-09-25 11:49 | Emergency (ER) | payer OTHER, SELFPAY ==
[2019-09-25] VITALS (24 sets, daily range): BP systolic 125–147; BP diastolic 61–84; PULSE 67–92; RESP 9–23; TEMP 37; O2SAT 97–100
--- NOTE | 2019-09-25 11:45 | RT.EKG_ITS ---
APPROVED REPORT Exam: Resting ECG Patient Location: E HR:85 bpm ECG Measurements Heart Rate 85 AXIS SC 183 P 1 QRSd 98 QRS -60 QT 387 T 34 QTc 460 <Conclusion> Sinus rhythm...normal P axis, V-rate 60- 99 Left anterior fascicular block...axis(240,-40), init forces inf Left ventricular hypertrophy...multiple voltage criteria
--- NOTE | 2019-09-25 12:00 | DI.CT_ITS ---
EXAM: CT THORAX CTA CLINICAL HISTORY: upper back pain and chest pain, ?dissection TECHNIQUE: COMPARISON: CT CT ABDOMEN PELVIS W from 10/27/2018 FINDINGS: CT angiography of the chest was performed with intravenous infusion of 100 cc of Omnipaque 350. Imag es obtained through the upper abdomen show unremarkable appearance of visualized portions of the live r, spleen, pancreas, gallbladder, bile ducts, adrenals, and left kidney. There is no evidence of pulmonary embolic disease. The lungs are clear. Thoracic aorta is of normal diameter with no evidence of dissection. Major upper abdominal and thoracic branches of the aorta a ppear normal. No mediastinal or hilar adenopathy. Tracheobronchial tree appears intact. Lungs are clear. No pleural effusion or pneumothorax. IMPRESSION: Negative CT angiography of the chest.
--- NOTE | 2019-09-25 12:14 | W.ED.GENAD ---
Discharge Plan Disposition Patient Disposition: HOME Condition: Stable Discharge Details Chief Complaint: Chest Pain Clinical Impression: Back pain, thoracic Primary Care Provider: Griffin Watson ED Provider: Adrian Enriquez Home Meds and New Rx's Prescriptions: Continued raloxifene 60 mg Tablet 60 mg PO DAILY RF: 0 cetirizine 10 mg Tablet 10 mg PO DAILY Qty: 30 RF: 13 zolpidem 10 mg tablet 5 mg PO DAILY RF: 0 Discharge Instructions Additional Instructions: your blood work and cat scan did not show any concerning findings for heart attack, blood clots or other abnormalities I placed you on our follow up list to get a primary care provider as soon as possible if you feel more ill, worsening pain or difficulty breathing return to the emergency department Medical Decision Making 64 yo female with hx of breast cancer in remission comes in with cc of upper back pain and left shoulder pain yesterday that resolved and feels lightheaded and short of breath today. Denies fevers, cough, chest pain, abd pain, no prior cardiac history and no smoking history. Has clear lungs, no murmurs, no jvd or lower extremity swelling or calf pain. Her pain could be musculoskeletal but given location of pain concern for dissection, will obtain CTA. HAs no evidence of dvt, hypoxia or tachycardia so doubt PE. HEart score is 2 and had no chest pain or pressure, unlikely acs but will obtain troponin to further evaluate labs and imaging show no concerning abnormalities, remains hd stable and feels well, will monitor and repeat troponin and ekg remains stable and asymptomatic and repeat troponin negative, given low heart score feel she can be d/c'd and f/u with pcp and return precautions given Differential Diagnosis Differential Diagnosis: acs, dissection, pna, thoracic muscle pain Medical Records Medical records reviewed: Yes I reviewed the patient's medical records. Imaging Data Radiologic Study: Attestation: I personally reviewed and interpreted this imaging study as follows: Imaging: CT Scan Radiologist's impression: negative cta Lab Data Lab results reviewed: Yes I reviewed the patient's lab results. ECG Data Attestation: I personally reviewed and interpreted this ECG (s) as follows: Prior ECG tracings: not available for review Interpretation: sinus rhythm, rate of 85, qtc [address] t wave ischemic findings 2nd ekg shows sinus rhythm, rate of 75, pr 206, no acute st t wave ischemic findings HPI General Mode of arrival: ambulatory. Date/Time Provider Initiated Documentation: 09/25/19 11:49. Limitations to Documentation: no limitations. Information obtained by: patient. History of Present Illness 64 year old F presents to the emergency department with the chief complaint of upper back pain, Patient started experiencing this day(s) (1) and it has been now resolved. No relieving factors improve symptom(s), No exacerbating factors reported . Patient did receive the following treatments prior to arrival, none Related Data Home Medications Medication Instructions Recorded Confirmed raloxifene 60 mg PO DAILY 10/20/18 09/25/19 cetirizine 10 mg PO DAILY #30 tab 10/23/18 09/25/19 zolpidem 5 mg PO DAILY 09/25/19 09/25/19 Previous Rx's Medication Instructions Recorded cetirizine 10 mg PO DAILY #30 tab 10/23/18 Allergies Allergy/AdvReac Type Severity Reaction Status Date / Time No Known Allergies Allergy Verified 09/25/19 12:09 General Stated Complaint: Chest Pain OLGA: 2 Review of Systems All systems reviewed & are unremarkable except as noted in HPI and below Constitutional Constitutional: Denies chills and Denies fever(s) Cardiovascular Cardiovascular: Denies chest pain Respiratory Respiratory: Denies cough Gastrointestinal Gastrointestinal: Denies abdominal pain, Denies nausea and Denies vomiting Musculoskeletal Musculoskeletal: Denies joint swelling Integumentary/Breasts Skin/Breast: Denies rash Psychiatric Psychiatric: Denies depression [facility] Medical History (Updated 09/25/19 @ 15:40 by Adrian Enriquez MD) Breast cancer (Chronic) Lower abdominal adhesions (Acute) Mural thickening of small intestine (Acute) SBO (small bowel obstruction) (Acute) Surgical History History of salpingoophorectomy (Acute) Hx of mastectomy (Chronic) S/P MERLINE-BSO (Acute) S/P TRAM (transverse rectus abdominis muscle) flap breast reconstruction (Acute) Social History Smoking/Tobacco Use Status: Never Alcohol Intake: current Alcohol Intake frequency: a few times a month Drug use: Never Substance use type: does not use Do you feel safe at home: Yes Do you feel safe in your relationship?: Yes Female Reproductive History Menstrual Menopause type: surgical Exam Const General: no acute distress Orientation: alert HENMT Head: normal to inspection Ears: external ears normal General nose exam: external nose normal Mouth: moist mucous membranes Eyes General: appearance normal, both eyes and all related structures Neck Neck: normal visual inspection Resp Effort & Inspection: normal respiratory effort and able to speak in complete sentences Cardio Rate: regular rate GI Palpation: soft and nontender Skin General skin exam: no rashes or lesions noted Neuro General: patient alert and patient oriented x3 Extrem General: normal to inspection Psych Mental Status: mental status grossly normal Course Vital Signs Vital signs: Vital Signs Temperature 37 C 09/25/19 12:05 Pulse 79 09/25/19 12:05 Respiratory Rate 16 09/25/19 12:05 Blood Pressure 147/84 H 09/25/19 12:05 Pulse Oximetry 98 09/25/19 12:05 Temperature 37 C 09/25/19 12:05 Temperature Source Skin 09/25/19 12:05 Pulse 79 09/25/19 12:05 Respiratory Rate 16 09/25/19 12:05 Respiratory Effort Non-Labored 09/25/19 12:05 Blood Pressure 147/84 H 09/25/19 12:05 Blood Pressure Position Supine 09/25/19 12:05 Pulse Oximetry 98 09/25/19 12:05 Oxygen Delivery Method Room Air 09/25/19 12:05 Oxygen Flow Rate 0 09/25/19 12:05 Pain Level 0 09/25/19 12:05
[2019-09-25 12:42] LABS: Abs Immature Grans 0.02 10^3/uL (0.0-0.06); Absolute Basophil Count 0.02 10^3/uL (0.0-0.2); Absolute Eosinophil Count 0.11 10^3/uL (0.0-0.7); Absolute Lymphocyte Count 1.99 10^3/uL (1.2-3.4); Absolute Monocyte Count 0.44 10^3/uL (0.1-0.8); Basophils % 0.3; Eosinophils % 1.7; HCT 42.2 % (36.0-46.0); HGB 13.9 g/dL (11.2-15.7); Immature Grans % 0.3; Lymphocytes % 30.7; MCH 30.8 pg (27.0-33.0); MCHC 32.9 % (32.0-36.0); MCV 93.4 fL (80-95); MPV 9.9 fL (8.0-11.0); Monocytes % 6.8; Neutrophils % 60.2; Nucleated RBC 0 %; Platelet Count 213 10^3/uL (130-400); RBC 4.52 10^6/uL (3.93-5.22); RDW 12.4 % (11.7-14.6); RDW-SD 43.1 fL; WBC 6.48 10^3/uL (4.4-10.8)
[2019-09-25 12:44] LABS: ALT 24 U/L (14-59); AST 15 U/L (15-37); Albumin 3.7 g/dL (3.4-5.0); Alkaline Phosphatase 76 U/L (46-116); Anion Gap 9.4 mmol/L (3-11); BUN 11 mg/dL (7-18); Bilirubin, Direct 0.09 mg/dL (0.00-0.20); Bilirubin, Total 0.4 mg/dL (0.2-1.0); CO2 26.6 mmol/L (21.0-32.0); CREATININE 0.67 mg/dL (0.55-1.02); Calcium 8.7 mg/dL (8.5-10.1); Chloride 105 mmol/L (98-107); Glucose 106 mg/dL (74-106); Lipase 167 U/L (73-393); Magnesium 1.9 mg/dL (1.8-2.4); Potassium 3.3 mmol/L (3.5-5.1); Sodium 141 mmol/L (136-145)
[2019-09-25 12:46] LABS: Troponin I < 0.05 ng/mL (<0.06)
[2019-09-25 12:52] LABS: PTT Activated 22.3 sec (21.0-31.4)
[2019-09-25] MEDS: Omnipaque 350 MG/ML 100 ML BTL IJ (13:42)
[2019-09-25] MEDS: Normal Saline - Diluent 50 ML VIAL IV (13:42)
--- NOTE | 2019-09-25 14:15 | RT.EKG_ITS ---
APPROVED REPORT Exam: Resting ECG Patient Location: E HR:75 bpm ECG Measurements Heart Rate 75 AXIS [place] 206 P -13 QRSd 93 QRS -58 QT 402 T 45 QTc 442 <Conclusion> Sinus rhythm...normal P axis, V-rate 60- 99 Atrial premature complex...SV complex w/ short R-R interval Inferior infarct, old...Q >35mS, II III aVF
[2019-09-25 15:28] LABS: Troponin I < 0.05 ng/mL (<0.06)
--- NOTE | 2019-09-25 15:40 | NUR.NOTE ---
Nursing Note: Referral that patient needs a PCP was given to [facility]. Claire Woo
--- NOTE | 2019-09-27 11:31 | PDOC.ERCMPRO ---
- If Service Date Differs Date of service: 09/27/19 Time of Service: 11:31 Care Management Progress Note At the request of ED provider, CM coordinates referral to ELSA Waller, HAND PLEATER-BC, on-call doc, of [facility], to assist patient in obtaining a follow-up appointment and in establishing with PCP.
== END 2019-09-25 15:44 | disposition home or self-care (01) ==
PROVIDERS: Emergency Provider Emergency Medicine; PCP Nurse Practitioner Family
DX: M54.6 Pain in thoracic spine (principal); Z85.3 Personal history of malignant neoplasm of breast
CPT/HCPCS: 36415; 71275; 80053; 83690; 93005; 99285; 82248; 83735; 84484; 85025; 85610; 85730; 93010; 99284; J3490